=== PATIENT | female | born 1960 | race Caucasian/White ===

== ENCOUNTER 2021-11-19 13:46 | Inpatient (IN) | payer OTHER, SELFPAY ==
[2021-11-19] VITALS (8 sets, daily range): BP systolic 116–141; BP diastolic 69–116; PULSE 59–91; RESP 16–18; TEMP 36.2–36.9; O2SAT 96–99; BMI 28.2; BMI 27.2
--- NOTE | 2021-11-19 13:54 | RAD_ITS ---
STUDY: X-RAY CHEST REASON FOR EXAM: Female, 60 years old. Chest pain TECHNIQUE: Single AP portable view of the chest. COMPARISON: None. FINDINGS: The lungs are clear and expanded. There is no demonstrated pleural abnormality. Normal size heart. Normal mediastinum and jorge luis. Normal visualized pulmonary arteries. There is atherosclerotic tortuosity of the aortic arch and descending thoracic aorta. Normal visualized thoracic spine. Normal visualized ribs, clavicles, and shoulders. There is no demonstrated abnormality of the visualized soft tissue structures of the upper abdomen. RAD/Chest 1 View (Portable) IMPRESSION: Normal x-ray examination of the chest. Electronically Signed: Leonel Berg MD at 15:30 EST , Service support ,
--- NOTE | 2021-11-19 13:54 | EKG12_ITS ---
Test Reason : PRE HEART CATH Blood Pressure : / mmHG Vent. Rate : 071 BPM Atrial Rate : 071 BPM P-R Int : 178 ms QRS Dur : 090 ms QT Int : 438 ms P-R-T Axes : 075 -23 027 degrees QTc Int : 475 ms Normal sinus rhythm Abnormal ECG Confirmed by ANU EPPERSON, ASHLEY ([id number]), newspaper editor DANUTA ALDANA ([id number]) on 11/21/2021 10:03:46 AM Referred By: WHITNEY Confirmed By:ASHLEY BRENNAN MD
[2021-11-19 14:03] LABS: Absolute Lymphocyte Count 2.47 X10^3/uL (0.83-4.51); Absolute Neutrophil Count 6.6 X10^3/uL (2.0-7.7); Basophil# 0.05 X10^3/uL; Basophil% 0.5 % (0-1); Eosinophil# 0.07 X10^3/uL; Eosinophils% 0.7 % (0-5); Hematocrit 44.8 % (37-47); Hemoglobin 14.2 g/dL (12.0-15.0); Lymphocyte # 2.47 X10^3/ul (0.83-4.51); Lymphocyte % 24.7 % (19-41); Mean Corp Hgb Conc 31.7 g/dL (32-36); Mean Corpuscular Hgb 28.3 pg (27.0-32.0); Mean Corpuscular Volume 89.4 fL (81-99); Mean Platelet Vol. 8.5 fl (6.2-12.0); Monocyte# 0.79 X10^3/uL; Monocyte% 7.9 % (0-10); NRBC Flagged by Analyzer 0 % (0-5); Neutrophil # 6.62 X10^3/uL (2.7-7.7); Platelet Count 307 K/mm3 (150-450); RBC Distribution Width CV 13.3 % (11.6-14.6); RBC Distribution Width SD 43.8 fl (35.1-43.9); Red Blood Count 5.01 M/mm3 (4.2-5.4)
--- NOTE | 2021-11-19 14:16 | NURSING ---
NO OLD EKGS
[2021-11-19 14:27] LABS: Anion Gap 9 (5-15); BUN 14 mg/dL (7-18); BUN/Creat Ratio 15.7 RATIO (10-20); Calcium,Total 9.9 mg/dL (8.5-10.1); Chloride 105 mmol/L (98-107); Creatinine, Serum 0.89 mg/dL (0.55-1.02); EST Glomerular Filtration Rate 68 mL/min (>60); Est Glom Filt Rate - Afr Amer 83 mL/min (>60); Estimated Creatinine Clearance 62.14 ml/min; Glucose 90 mg/dL (74-106); Potassium 3.5 mmol/L (3.5-5.1); Sodium Level 140 mmol/L (136-145); Troponin-I HS 5912 pg/mL (3.0-54.0)
--- NOTE | 2021-11-19 14:56 | EDS_ITS ---
HPI History of Present Illness Chief Complaint: Chest Pain Informant: patient Onset/Context/Timing Onset: Days Activity at onset: sudden Timing: Intermittent Quality: Positive for Heaviness Location: Substernal Current Severity: Gone Maximum Severity: Severe Worsened By: Nothing Relieved By: Nothing Associated Symptoms: Positive for Nausea, Diaphoresis and Dyspnea; Negative for Cough, Fever, Lightheadedness, Acid Reflux and Palpitations Narrative Narrative: 60-year-old female no known past medical history but also does not have a primary care physician. States on Wednesday night at 6:00 she had midsternal chest pain at rest. Radiates to her jaw and neck. There is moderate pain pain resolved she went to bed she woke up and felt good on Wednesday. Wednesday she had similar pain that also radiated to her left arm between 7 and 8 PM. She was at rest again at that time. But she sat up the rest of the night not feeling well. Again had similar episodes last night at 10 PM was acting in a calm into the ER but when her symptoms resolved she decided to go back home. Currently she is symptom-free. She has no known history of cardiac disease there is a significant family history of cardiac disease in both her mother, father and brother. She is never had a DVT or PE and no risk factors. Prior Similar Symptoms: No Recent Illness/Hospitalization: No CVD Risk Factors: Positive for Family History 1' </=55; Negative for Hypertension, Diabetes and Hypercholesterolemia PE Risk Factors: Negative for Recent Travel/Surgery, Recent Immobilization, Prior DVT or PE, Cancer and OCP + Smoking + >/=35 TAD Risk Factors: Negative for Marfan's Syndrome, Hypertension and Family History PFSH PFSH Medical History no medical history no medical history Allergy/AdvReac Type Severity Reaction Status Date / Time No Known Allergies Allergy Verified 11/19/21 14:01 ROS ROS ED ROS Narrative Chest pain. Review of Systems ROS Unobtainable: Denies due to encephalopathy Constitutional Constitutional ED: Denies fever(s) or subjective Eyes Eyes: Denies none or change in vision ENT ENT ED: Denies ear pain Cardiovascular Cardiovascular: Reports as per HPI and chest pain; Denies palpitations or racing heartbeat Respiratory/Chest Respiratory/Chest: Reports dyspnea; Denies cough or sputum Gastrointestinal Gastrointestinal: Reports nausea; Denies abdominal pain, diarrhea or vomiting Genitourinary Genitourinary ED: Denies dysuria or hematuria Musculoskeletal Musculoskeletal: Denies myalgias Integumentary Denies rash Neurologic Neurologic: Denies headache(s) Psychiatric Psychiatric: Denies depression Endocrine Endocrinology: Denies polyuria Hematologic/Lymphatic Hematologic/Lymphatic: Denies easy bruising Allergic/Immunologic Allergic/Immunologic ED: Denies urticaria EXAM Physical Exam Narrative Exam Narrative: 60-year-old female no acute distress. Vital signs stable afebrile. Pulse ox 9 9% on room air no hypoxia. Initial blood pressure 136/81. HEENT exam unremarkable. Neck nontender no JVD. Lungs clear to auscultation bilaterally. Heart regular rhythm rate about 65 no murmur. Chest were nontender. Abdomen soft nontender. Moving all 4 extremities. Neurovascularly intact. Calves are nontender without edema or cords. Neurologically she is awake and alert with no focal motor deficits. Const Vital Signs: 11/19/21 13:59 Temperature 98 F Temperature Source Temporal Pulse Rate 68 Respiratory Rate 16 Blood Pressure 136/81 H Blood Pressure Mean 99 Pulse Ox 99 Oxygen Delivery Method Room Air Positive well nourished and well developed; Negative for obese, cachectic, contractures or unkempt General Appearance ED: well developed and NAD; Negative for unkempt, cachectic, contractures or pallor Nutritional Appearance: Negative for cachectic or obese HEENT Reports moist mucous membranes normocephalic Eyes PERRL and EOMs intact bilaterally Neck no lymphadenopathy, supple and no JVD General: Negative for tenderness Chest Wall inspection of chest normal and palpation of chest normal Chest: Negative for tenderness Resp normal respiratory effort and clear to auscultation bilaterally Effort and Inspection: respiratory distress Auscultation: Negative for rales, rhonchi, wheezes or diminished lung sounds Cardio regular rate, regular rhythm, S1 normal heart sound, S2 normal heart sound and no murmurs Rate: Negative for bradycardia or tachycardic Rhythm: Negative for abnormal rhythm GI normal to inspection, nondistended, normoactive bowel sounds, soft to palpation, non-tender, non-distended and no masses; Negative for hepatosplenomegaly Auscultation: Negative for hyperactive bowel sounds Back/Spine no CVA tenderness; Negative for no thoracic nor lumbar tenderness General Back: Negative for CVA tenderness Cervical Spine: Negative for cervical spine tenderness Extremity normal to inspection General Extremety ED: Negative for edema or tenderness General Extremity: Negative for edema Neuro oriented x3 Sensorium / Orientation: awake, alert, oriented to person, oriented to place and oriented to time Motor Exam: strength 5/5 throughout Psych mental status grossly normal Appearance: Negative for unkempt Attitude: No agitated Mood & Affect: Negative for depressed, anxious or tearful Skin no rashes or lesions noted and no wounds General Skin Exam: Negative for jaundice or pallor Rashes: No rashes noted Heart Score History: Highly Suspicious ECG: Normal Age: >45 - <65 years Risk Factors: 1 or 2 Risk Factors Troponin: >/=3 x Normal Limit Score: 6 MDM MDM MDM Narrative Medical decision making narrative: 60-year-old female with a history of very concerning chest pain over the last several days. She has a significantly elevated troponin. Currently she is symptom-free with a normal exam. I have already spoken to cardiology zoning technician. Due to her being symptom-free organ admit her to the hospitalist to the PCU. She will be heparinized. And she will be taken to the cardiac catheterization lab tomorrow. Obviously she develops symptoms that may change the treatment course. She is very stable at this time. Repeat exam patient is doing well at 3:22 PM. Hospitalist is going admit her to the PCU. She will be getting heparin bolus and drip. Lab Data Attestation: I reviewed the patient's lab results. Lab results narrative: CBC White count of 10. Hemoglobin 14. Electrolytes unremarkable gap at 9 normal creatinine 0.89. Troponins elevated at 5912 consistent with a non-ST elevation [place] in the last several days. Labs: Laboratory Results - last 24 hr 11/19/21 11/19/21 13:50 13:50 WBC 10.0 RBC 5.01 Hgb 14.2 Hct 44.8 MCV 89.4 MCH 28.3 MCHC 31.7 L RDW Std Deviation 43.8 RDW Coeff of Nikolas 13.3 Plt Count 307 MPV 8.5 Immature Gran % (Auto) 0.200 Neut % (Auto) 66.0 Lymph % (Auto) 24.7 [place] % (Auto) 7.9 Eos % (Auto) 0.7 Baso % (Auto) 0.5 Absolute Neuts (auto) 6.6 Absolute Lymphs (auto) 2.47 Nucleated RBC % 0 Sodium 140 Potassium 3.5 Chloride 105 Carbon Dioxide 26.0 Anion Gap 9 BUN 14 Creatinine 0.89 Estim Creat Clear Calc 62.14 Est GFR (MDRD) Af Amer 83 Est GFR (MDRD) Non-Af 68 BUN/Creatinine Ratio 15.7 Glucose 90 Calcium 9.9 Troponin I High Sens 5912 H* Radiography Chest X-Ray - ED: 1 View, Read by ED Physician, Heart, Lungs, Mediastinum, Bony Structures, No Acute Disease and Chronic Changes Diagnostic Testing: Chest x-ray, portable, single view interpreted by myself shows no acute abnormality. Normal cardiac silhouette and mediastinum. Rhythm Strip Rhythm Strip: Sinus Rhythm Rate: 64 Ectopy: None EKG Initial EKG: Attestation: I personally reviewed and interpreted this EKG as follows: Interpretation: Sinus Rhythm Comments: Normal sinus rhythm rate of 64 no acute signs of [place] or ischemia. Prior EKG tracings: not available for review Discharge Plan Dx/Rx/DC Orders Clinical Impression: Chest pain, Non-ST elevation (NSTEMI) myocardial infarction Disposition Disposition: Acute Care Hospital [facility]
[2021-11-19] MEDS: Heparin Injection (Vial) 5,000 UNIT/ML VIAL 5000 UNIT IV (15:41)
--- NOTE | 2021-11-19 16:11 | HP.PCM.HOS_ITS ---
HPI - General General Date of Admission: 11/19/21 HPI Narrative FLORINDA BAILEY, is a 60 F who presents with chest pain. The past 3 nights, patient has experienced midsternal chest pain rating into bilateral jaws. Symptoms last about an hour and then go away spontaneously. This occurs while she is just sitting and watching TV. Is never had this problem before. She presented this morning for evaluation. Her work-up was unremarkable regards her EKG but her troponin was elevated at 5912. Dr. Johnson was contacted and is plan to do a cardiac catheterization on . [facility] Medical History no medical history no medical history Allergy/AdvReac Type Severity Reaction Status Date / Time No Known Allergies Allergy Verified 11/19/21 14:01 Family History (Updated 11/19/21 @ 16:[address] Lewis Osman DO) Mother Heart disease Brother Heart disease Sister Heart disease Social History (Updated 11/19/21 @ 16:[address] Lewis Osman DO) Smoking Status: Never smoker alcohol intake: never substance use type: does not use ROS ROS Narrative Patient did have some diaphoresis with the spells. Denies any shortness of breath. All review of systems were negative except as mentioned above in the history of present illness and the other review of systems. Vital Signs Vital Signs Vital Signs: 11/19/21 13:59 11/19/21 15:38 Temperature 36.6 C 36.2 C L Temperature Source Temporal Temporal Pulse Rate 68 65 Respiratory Rate 16 16 Blood Pressure 136/81 H 140/116 H Blood Pressure Mean 99 124 Pulse Ox 99 98 Oxygen Delivery Method Room Air Room Air Weight Weight: 79.379 kg Body Mass Index (BMI) 28.2 Physical Exam Const alert and no apparent distress General Appearance: cooperative HEENT normocephalic and head/scalp atraumatic Neck no lymphadenopathy Resp normal respiratory effort, no retractions, no use of accessory muscles and clear to auscultation bilaterally Cardio regular rate, regular rhythm, S1 normal heart sound and S2 normal heart sound GI normal to inspection, nondistended, normoactive bowel sounds, soft to palpation, non-tender and non-distended Extremity normal to inspection and full ROM Neuro Sensorium / Orientation: awake and alert Results Lab / Micro Data Attestation: I reviewed the patient's lab results. Result Diagrams: 11/19/21 13:50 11/19/21 13:50 Labs: Laboratory Results - last 24 hr 11/19/21 13:50: WBC 10.0, RBC 5.01, Hgb 14.2, Hct 44.8, MCV 89.4, MCH 28.3, MCHC 31.7 L, RDW Std Deviation 43.8, RDW Coeff of Nikolas 13.3, Plt Count 307, MPV 8.5, Immature Gran % (Auto) 0.200, Neut % (Auto) 66.0, Lymph % (Auto) 24.7, [place] % (Auto) 7.9, Eos % (Auto) 0.7, Baso % (Auto) 0.5, Absolute Neuts (auto) 6.6, Absolute Lymphs (auto) 2.47, Nucleated RBC % 0 11/19/21 13:50: Sodium 140, Potassium 3.5, Chloride 105, Carbon Dioxide 26.0, Anion Gap 9, BUN 14, Creatinine 0.89, Estim Creat Clear Calc 62.14, Est GFR (MDRD) Af Amer 83, Est GFR (MDRD) Non-Af 68, BUN/Creatinine Ratio 15.7, Glucose 90, Calcium 9.9, Troponin I High Sens 5912 H* Rhythm Strip Rhythm Strip: Sinus Rhythm Rate: 64 Ectopy: None EKG Initial EKG: Attestation: I personally reviewed and interpreted this EKG as follows: Prior EKG tracings: available for review EKG Rhythm Intrepretation: Sinus Rhythm Radiology Impression Chest X-Ray 11/19/21 13:54 IMPRESSION: Normal x-ray examination of the chest. Electronically Signed: Leonel Berg MD at 15:30 EST , Service support , Assessment & Plan Assessment/Plan (1) Non-ST elevation (NSTEMI) myocardial infarction: (2) COVID-19 vaccine dose declined: PLAN: 1. Non-STEMI Patient anticoagulated with heparin and will continue Give patient aspirin Check lipid panel Plan for cardiac catheterization on the [address] Johnson 2. VTE prophylaxis not indicated as patient is anticoagulated 3. Covid vaccine hesitancy Patient says she contracted Covid about a year ago. Said that she does not want it in her body. I strongly advised her that she do get vaccinated. She apparently is unaware of the influx of COVID-19 patients and hospitals across the world. Charges/Coding Visit Charges Inpatient E&M: 17528 Init Hosp L2
--- NOTE | 2021-11-19 16:26 | EKG12_ITS ---
Test Reason : AM Blood Pressure : / mmHG Vent. Rate : 068 BPM Atrial Rate : 068 BPM P-R Int : 172 ms QRS Dur : 086 ms QT Int : 446 ms P-R-T Axes : 077 042 -85 degrees QTc Int : 474 ms Normal sinus rhythm T wave abnormality, consider inferolateral ischemia Prolonged QT Abnormal ECG When compared with ECG of 19-NOV-2021 17:21, T wave inversion now evident in Inferior leads Confirmed by RYAN EPPERSON, FLACO ([id number]), tape editor COOKIE BURDICK ([id number]) on 11/27/2021 2:02:31 PM Referred By: WHITNEY Confirmed By:TACOS DAVIS MD
[2021-11-19 17:01] LABS: Prothrombin Time (Protime)PT. 12.6 SECONDS (11.7-14.9)
[2021-11-19 17:02] LABS: Partial Thromboplast Time 36.2 Seconds (24.1-36.2)
--- NOTE | 2021-11-19 17:03 | PCS.PANDOC ---
PANDEMIC DOCUMENTATION INITIATED: Date: 06/30/2021 Time: 190
--- NOTE | 2021-11-19 17:06 | CON.PCM.CA_ITS ---
Assessment & Plan Assessment/Plan (1) Non-ST elevation (NSTEMI) myocardial infarction: PLAN: She presents with chest discomfort which is fairly classic for angina with angina at rest and also with a non-ST elevation myocardial infarction. My recommendation will be as follows. * Aspirin 325 mg * Metoprolol 25 mg twice a day * Atorvastatin 80 mg a day * Lovenox 1 mg/kg * Bedrest * Cardiac catheterization in a.m. There is benefits alternatives have been explained to her she understands and agrees to proceed. Depending on the findings further recommendations will be made. * * Thank you for allowing me to participate in the care of your patient. Please don't hesitate to call if any issues arise. HPI Consult Data Date of Consult: 11/19/21 HPI Narrative HPI Narrative: FLORINDA BAILEY, is a 60 F who presents to the emergency him this afternoon after calling our office to make an appointment. She has apparently been having chest discomfort over the last 3 days usually at rest described as a heaviness across her chest and radiating to both sides of her jaw. She says t hat these occurred on successive nights. She did not take any medication for this. She denied any dizziness or diaphoresis near syncope or syncope she called our office today and was directed to go directly to the emergency room. In the emergency room she was noted to have an elevated troponin count. Cardiology was consulted for further evaluation and management. [facility] Medical History no medical history Allergy/AdvReac Type Severity Reaction Status Date / Time No Known Allergies Allergy Verified 11/19/21 14:01 Family History Mother Heart disease Brother Heart disease Sister Heart disease Social History Smoking Status: Never smoker alcohol intake: never substance use type: does not use ROS Constitutional Constitutional: Denies fever(s) or weight loss Eyes Eyes: Reports systems reviewed and no addt'l complaints, except as documented ENT HEENT: Reports systems reviewed and no addt'l complaints, except as documented Cardiovascular Cardiovascular: Denies chest pain at rest, chest pain with activity, dyspnea at rest, dyspnea on exertion, edema, palpitations or paroxysmal nocturnal dyspnea Respiratory/Chest Respiratory/Chest: Denies dyspnea on exertion, productive cough, shortness of breath at rest or shortness of breath with exertion Gastrointestinal Gastrointestinal: Denies change in bowel habits, nausea, vomiting or weight changes Genitourinary Genitourinary: Denies difficulty urinating Musculoskeletal Musculoskeletal: Denies joint stiffness or muscle weakness Integumentary Integumentary: Denies lesions Neurologic Neurologic: Denies dizziness or syncope Psychiatric Psychiatric: Denies anxiety Endocrine Endocrinology: Denies excessive sweating or fatigue Hematologic/Lymphatic Hematologic/Lymphatic: Denies anemia Allergic/Immunologic Allergic/Immunologic: Denies seasonal rhinorrhea Physical Exam Const alert, oriented x3 and no apparent distress General Appearance: cooperative HEENT hearing grossly normal bilaterally Head and Scalp: atraumatic Eyes EOMs intact bilaterally Neck General: normal visual inspection Chest inspection of chest normal and palpation of chest normal Resp normal respiratory effort Auscultation: clear to auscultation bilaterally Cardio regular rate, regular rhythm, S1 normal heart sound and S2 normal heart sound Jugular Venous Distention: JVD GI normal to inspection, nondistended, normoactive bowel sounds Extremity normal capillary refill and no pedal edema Peripheral Pulses: Yes pulses 2+ throughout and femoral pulses present Skin no rashes or lesions noted Neuro oriented x3 and CN's II-XII intact bilaterally Psych Appearance: grossly normal and appropriate Risk Stratification Risk Stratification Applicable: Yes Age >/= 65: No >/= 3 CAD Risk Factors (HTN, HLD, DM, family hx of CAD, or current smoker): No Aspirin Use in the Past 7 Days: No Severe Angina (>/= episodes in 24 hours): Yes EKG ST Changes >/= 0.5mm: No Positive Cardiac Marker: Yes WANDA Risk Stratification Score: 2 WANDA % Risk: 8% Risk Objective Data Vital Signs: Vital Signs Temp Pulse Resp BP Pulse Ox 97.2 F L 65 16 140/116 H 98 11/19/21 15:38 11/19/21 15:38 11/19/21 15:38 11/19/21 15:38 11/19/21 15:38 Oxygen Delivery Method Room Air Weight: 171 lb 4.787 oz Body Mass Index (BMI) 27.2 Intake & Output: Intake and Output for Last 24 Hours 11/17/21 11/18/21 11/19/21 23:59 23:59 23:59 Intake Total 8.43 / 8.43 Balance 8.43 / 8.43 Lab / Micro Data Result Diagrams: 11/19/21 13:50 11/19/21 13:50 Labs: Laboratory Results - last 24 hr 11/19/21 13:50: WBC 10.0, RBC 5.01, Hgb 14.2, Hct 44.8, MCV 89.4, MCH 28.3, MCHC 31.7 L, RDW Std Deviation 43.8, RDW Coeff of Nikolas 13.3, Plt Count 307, MPV 8.5, Immature Gran % (Auto) 0.200, Neut % (Auto) 66.0, Lymph % (Auto) 24.7, [place] % (Auto) 7.9, Eos % (Auto) 0.7, Baso % (Auto) 0.5, Absolute Neuts (auto) 6.6, Absolute Lymphs (auto) 2.47, Nucleated RBC % 0 11/19/21 13:50: Sodium 140, Potassium 3.5, Chloride 105, Carbon Dioxide 26.0, Anion Gap 9, BUN 14, Creatinine 0.89, Estim Creat Clear Calc 62.14, Est GFR (MDRD) Af Amer 83, Est GFR (MDRD) Non-Af 68, BUN/Creatinine Ratio 15.7, Glucose 90, Calcium 9.9, Troponin I High Sens 5912 H* 11/19/21 13:50: PT 12.6, INR 1.0, APTT 36.2 Rhythm Strip Rhythm Strip: Sinus Rhythm Rate: 64 Ectopy: None Cardiology Labs/Tests 11/19/21 13:50: WBC 10.0, RBC 5.01, Hgb 14.2, Hct 44.8, MCV 89.4, MCH 28.3, MCHC 31.7 L, Plt Count 307, MPV 8.5, Immature Gran % (Auto) 0.200, Neut % (Auto) 66.0, Lymph % (Auto) 24.7, [place] % (Auto) 7.9, Eos % (Auto) 0.7, Baso % (Auto) 0.5, Absolute Neuts (auto) 6.6, Nucleated RBC % 0 11/19/21 13:50: Sodium 140, Potassium 3.5, Chloride 105, Carbon Dioxide 26.0, Anion Gap 9, BUN 14, Creatinine 0.89, Est GFR (MDRD) Af Amer 83, Est GFR (MDRD) Non-Af 68, BUN/Creatinine Ratio 15.7, Glucose 90, Calcium 9.9 11/19/21 13:50: PT 12.6, INR 1.0, APTT 36.2 Rhythm: EKG: Normal sinus rhythm with no acute changes ECHO: Stress Test: Cardiac Cath: PCI: CT Surgery: Holter monitor: EPS: PPM: CXR: Chest CT Scan: Radiography Diagnostic Testing: Radiology Impression Chest X-Ray 11/19/21 13:54 IMPRESSION: Normal x-ray examination of the chest. Electronically Signed: Leonel Berg MD at 15:30 EST , Service support ,
[2021-11-19] MEDS: 0.9% Saline Lock 10 ML Syringe IV (17:26)
[2021-11-19] MEDS: Aspirin 81 MG TAB.CHEW 324 MG PO (17:28)
[2021-11-19 19:25] LABS: Troponin-I HS 4348 pg/mL (3.0-54.0)
[2021-11-19 21:20] LABS: Troponin-I HS 4399 pg/mL (3.0-54.0)
[2021-11-19] MEDS: Enoxaparin 80 MG/0.8 ML Syringe SC (21:27)
[2021-11-19] MEDS: Metoprolol Tartrate 25 MG Tablet PO (21:27)
[2021-11-19] MEDS: Atorvastatin Calcium 80 MG Tablet PO (21:27)
[2021-11-20] VITALS (8 sets, daily range): BP systolic 103–108; BP diastolic 59–87; PULSE 59–78; RESP 16–18; TEMP 36.2–37; O2SAT 96–98
--- NOTE | 2021-11-20 05:55 | EKG12_ITS ---
Test Reason : CP/JAW PAIN Blood Pressure : / mmHG Vent. Rate : 064 BPM Atrial Rate : 064 BPM P-R Int : 168 ms QRS Dur : 082 ms QT Int : 412 ms P-R-T Axes : 074 001 017 degrees QTc Int : 425 ms Normal sinus rhythm Normal ECG Confirmed by RYAN EPPERSON, FLACO ([id number]), supervising film or videotape editor COOKIE BURDICK ([id number]) on 11/28/2021 8:22:20 AM Referred By: MARCO ANTONIO/JORDYN Confirmed By:TACOS DAVIS MD
[2021-11-20] MEDS: 0.9% Saline Lock 10 ML Syringe IV (06:07)
[2021-11-20] MEDS: Aspirin E.C. 81 MG Tablet PO (06:07)
[2021-11-20] MEDS: Metoprolol Tartrate 25 MG Tablet PO (06:07)
[2021-11-20 07:55] LABS: Thyroid Stim Hormone (TSH) 2.47 uIU/mL (0.358-3.74)
--- NOTE | 2021-11-20 08:44 | CL.D_ITS ---
Patient Name: FLORINDA BAILEY Study Date: 11/20/2021 Performing: Callum Maldonado MD Ht: 66.53 inches 169 cm : 1960 Wt: 171.96 lbs 78 kg Age: 60 Gender: female BSA: 1.89 PROCEDURE(S) PERFORMED [id number])LHC/COR/LV CLINICAL PROFILE AND INDICATIONS Indications: ACS <= 24 hrs Heart Failure: None Stress/Imaging Stress/Image Study Performed: No CONCLUSIONS Mild eccentric [id number]. Mild LV dysfunction. RECOMMENDATIONS Medical therapy DESCRIPTION OF PROCEDURE The patient arrived to the procedure lab. The risks and benefits of the procedure as well as a full d escription of our services here and current unavailability of surgical backup were fully explained to the patient and/or their significant other prior to the catheterization. The Timeout was completed, verifying the correct patient and procedure. The patient's procedural site was prepped and draped in the usual fashion. Local anesthetic was given subcutaneously to right radial region with Lidocaine 2% . Using a modified Seldinger technique, arterial access was obtained via the right radial artery, a 6 Fr sheath was inserted. Left Coronary Artery selective angiography was performed in multiple views u sing a 5 Fr. 4.0 Lander catheter. Right Coronary Artery selective angiography was then performed in mu ltiple views using a 5 Fr. 4.0 Lander catheter. Left Ventriculography was performed in HOLLOWAY projection using a 5 Fr. Pigtail catheter. LV to AO pullback pressures were then recorded.The arterial sheath was pulled and a TR Band was applied for hemostasis CORONARY ANGIOGRAPHY DOMINANCE: Right Dominant LEFT HEART ASSESSMENT Left Ventricular Ejection Fraction: by LV Gram 45 % Anterior Hypokinesis - Mild Depressed Left Ventricular systolic function LEFT MAIN: Angiographically normal LEFT ANTERIOR DESCENDING ARTERY: Angiographically normal CIRCUMFLEX ARTERY: No significant disease noted OM 1: Proximal - 50smooth RIGHT CORONARY ARTERY: Angiographically normal COMPLICATIONS No Complications PROCEDURE MEDICATIONS Versed 1 mg IV Fentanyl 50 mcg IV Versed 1 mg IV Oxygen: 2 L/min via nasal cannula Heparin given IA 11/20/2021 08:08:27 SUMMARY OF HEMODYNAMIC DATA Time AIR REST ECG 07:54:34 AO 103/65 (83) SA 08:16:42 LV 97/-7, -2 08:23:22 LV 98/-7, -2 08:23:29 LV 114/3, 8 08:24:08 LV 107/3, 7 08:24:15 LV 102/5, 10 08:24:54 LV 107/6, 9 08:25:01 LVp 109/3, 9 08:25:08 AOp 110/66 (86) 08:25:13 Signed By Callum Maldonado MD On 11/20/2021 08:43:33 Callum Maldonado MD
--- NOTE | 2021-11-20 08:46 | PN.CARD_ITS ---
Subjective Subjective Patient seen and evaluated. Objective Data Vital Signs: Vital Signs Temp Pulse Resp BP Pulse Ox 98.6 F 69 18 108/63 97 11/20/21 06:05 11/20/21 07:00 11/20/21 06:05 11/20/21 06:07 11/20/21 06:05 Oxygen Delivery Method Room Air Weight: 171 lb 4.787 oz Body Mass Index (BMI) 27.2 Intake & Output: Intake and Output for Last 24 Hours 11/18/21 11/19/21 11/20/21 23:59 23:59 23:59 Intake Total 8.43 / 8.43 Balance 8.43 / 8.43 Lab / Micro Data Result Diagrams: 11/19/21 13:50 11/19/21 13:50 Labs: Laboratory Results - last 24 hr 11/19/21 13:50: WBC 10.0, RBC 5.01, Hgb 14.2, Hct 44.8, MCV 89.4, MCH 28.3, MCHC 31.7 L, RDW Std Deviation 43.8, RDW Coeff of Nikolas 13.3, Plt Count 307, MPV 8.5, Immature Gran % (Auto) 0.200, Neut % (Auto) 66.0, Lymph % (Auto) 24.7, Barnes % (Auto) 7.9, Eos % (Auto) 0.7, Baso % (Auto) 0.5, Absolute Neuts (auto) 6.6, Absolute Lymphs (auto) 2.47, Nucleated RBC % 0 11/19/21 13:50: Sodium 140, Potassium 3.5, Chloride 105, Carbon Dioxide 26.0, Anion Gap 9, BUN 14, Creatinine 0.89, Estim Creat Clear Calc 62.14, Est GFR (MDRD) Af Amer 83, Est GFR (MDRD) Non-Af 68, BUN/Creatinine Ratio 15.7, Glucose 90, Calcium 9.9, Troponin I High Sens 5912 H* 11/19/21 13:50: PT 12.6, INR 1.0, APTT 36.2 11/19/21 17:07: Troponin I High Sens 4348 H* 11/19/21 20:17: Troponin I High Sens 4399 H* 11/20/21 06:54: TSH 2.47 Micro: Microbiology 11/19/21 17:44 Nasal Secretion SARS-CoV-2 Antigen (Rapid) - Final Rhythm Strip Rhythm Strip: Sinus Rhythm Rate: 64 Ectopy: None Cardiology Labs/Tests 11/19/21 13:50: WBC 10.0, RBC 5.01, Hgb 14.2, Hct 44.8, MCV 89.4, MCH 28.3, MCHC 31.7 L, Plt Count 307, MPV 8.5, Immature Gran % (Auto) 0.200, Neut % (Auto) 66.0, Lymph % (Auto) 24.7, Barnes % (Auto) 7.9, Eos % (Auto) 0.7, Baso % (Auto) 0.5, Absolute Neuts (auto) 6.6, Nucleated RBC % 0 11/19/21 13:50: Sodium 140, Potassium 3.5, Chloride 105, Carbon Dioxide 26.0, Anion Gap 9, BUN 14, Creatinine 0.89, Est GFR (MDRD) Af Amer 83, Est GFR (MDRD) Non-Af 68, BUN/Creatinine Ratio 15.7, Glucose 90, Calcium 9.9 11/19/21 13:50: PT 12.6, INR 1.0, APTT 36.2 Rhythm: EKG: ECHO: Stress Test: Cardiac Cath: PCI: CT Surgery: Holter monitor: EPS: PPM: CXR: Chest CT Scan: Radiography Diagnostic Testing: Radiology Impression Chest X-Ray 11/19/21 13:54 IMPRESSION: Normal x-ray examination of the chest. Electronically Signed: Leonel Berg MD at 15:30 EST , Service support , Physical Exam Const alert, oriented x3 and no apparent distress General Appearance: cooperative HEENT hearing grossly normal bilaterally Head and Scalp: atraumatic Eyes EOMs intact bilaterally Neck General: normal visual inspection Chest inspection of chest normal and palpation of chest normal Resp normal respiratory effort Auscultation: clear to auscultation bilaterally Cardio regular rate, regular rhythm, S1 normal heart sound and S2 normal heart sound Jugular Venous Distention: JVD GI normal to inspection, nondistended, normoactive bowel sounds Extremity normal capillary refill and no pedal edema Peripheral Pulses: Yes pulses 2+ throughout and femoral pulses present Skin no rashes or lesions noted Neuro oriented x3 and CN's II-XII intact bilaterally Psych Appearance: grossly normal and appropriate Assessment & Plan Assessment/Plan (1) Non-ST elevation (NSTEMI) myocardial infarction: PLAN: She presents with chest discomfort which is fairly classic for angina with angina at rest and also with a non-ST elevation myocardial infarction. She underwent cardiac catheterization which demonstrated the following: Normal left main coronary artery. Left anterior descending artery with no significant stenosis. Dominant right coronary artery with no significant stenosis. Left circumflex artery which is a large vessel with the first obtuse marginal branch demonstrating eccentric 50% stenosis. Mild left ventricular systolic dysfunction with mild anterior hypokinesis. The above appears to be more consistent with a Takotsubo pattern. My recommendation will be as follows. * Aspirin 81 mg * Metoprolol 25 mg twice a day * Atorvastatin 80 mg a day * She can probably be discharged later today. * Thank you for allowing me to participate in the care of your patient. Please don't hesitate to call if any issues arise.
--- NOTE | 2021-11-20 10:59 | NURSING ---
pt back from blood and plasma laboratory assistant all recovered per blood and plasma laboratory assistant. pt irritable and c/o lozano. in room. teaching reinforced on not using rt for today. per dr. fajardo notes pt would be able to be dc'd home today.
--- NOTE | 2021-11-20 11:42 | PCM.DC ---
Discharge Instructions Diet Discharge Diet: Low fat / Low cholesterol and 2000 mg Sodium Diet Activity Discharge Activity: Return to Normal Activity Follow Up Care Test Results: Test results from this visit will be discussed in further detail at your follow-up appointment, if applicable. Discharge Plan Admission Admit Date/Time: 11/19/21 16:07 Primary Reason for Your Visit: Acute non-STEMI Attending Provider: Rima Barakat Primary Care Provider: Care Physician,No Primary Consulting Providers: Mekhi Johnson Instructions Additional Instructions / Restrictions: Take note of your new medications. Continue to follow on a low-salt low-fat diet. Follow-up with cardiology in the outpatient Discharge Orders/Prescriptions Referrals / Follow Up: Callum Maldonado MD [STAFF PHYSICIAN] - Within 2 Weeks Raul Jewell MD [STAFF PHYSICIAN] - Within 2 Weeks Care Physician,No Primary [Primary Care Provider] - Disposition Disposition (needs filled in before D/C Order can be placed): Home, Self Care
--- NOTE | 2021-11-20 12:45 | CASEMGMT ---
MEREDITH SHELDON assessment: Face to Face with patient for initial transition planning/care coordination assessment. MEREDITH SHELDON introduced self and role at [facility], pt voices understanding and consents to assessment. Pt is sitting up in bed in no distress on room air. Pt is A/Ox4 and answers all questions appropriately. Care providers, pharmacy, and demographics verified. Presentation: Pt c/o intermittent CP for 3 days Admitting dx: NSTEMI PCP: Lana-is working on getting into her Specialists: Erica, cardio [facility]acy[facility] Insurance: Self pay Prescription Benefit: Self pay Living Will/HPOA: Pt does not have LW/HPOA and declines AD info. LNOK: Antoine Sandoval, Living Arrangements: Pt lives with sig other in 1 story home with couple steps in and states no concerns at home. Pt is independent with ADL's. Transportation: Pt drives self and states no transportation concerns. DME/HHC: Pt has no current DME or need for any further DME. Pt states no hx of HHC or SNF. Pt states no concerns with going home at time of discharge. Pt is self-employed. Pt states does not smoke cigarettes or drink ETOH. Pt voices no further concerns/needs. CM to follow for any further discharge planning/needs. Advised pt to ask for CM if any further questions/concerns/needs arise, voice understanding. Pt Goal: Home Plan[place] MEREDITH SHELDON
--- NOTE | 2021-11-20 13:20 | PCM.DC.SUM ---
Providers Date of Admission: 11/19/21 Date of Discharge: 11/20/21 Primary Care Physician: Dr. Phillip Schwartz MD Consultations 11/19/21 16:26 Consult: Cardiology Routine Consulting Provider: Mekhi Johnson Reason for Consult: NSTEMI EMERGENT Consult: No MD Notified: Yes Date Notified: 11/19/21 Time Notified: 16:11 Method of Notification: Verbal Reason For Visit: NSTEMI Diagnosis Discharge Diagnosis (1) Non-ST elevation (NSTEMI) myocardial infarction: Status: Acute Code(s): I21.4 - Non-ST elevation (NSTEMI) myocardial infarction Medications at Discharge Home Medications aspirin 81 mg PO BREAKFAST 30 Days #30 tab 11/20/21 atorvastatin 80 mg PO QHS 30 Days #30 tab 11/20/21 metoprolol tartrate 25 mg PO BID 30 Days #60 tab 11/20/21 Hospital Course Operations None Procedures Cardiac catheterization (11/20/20) Summary of Care Provided Minutes Spent on Discharge: 40 Hospital Course: 60-year-old female with no significant past medical history who comes in with a 3-day history of midsternal chest pain radiating into her jaws. Symptoms typically last for 1 hour and go away. Patient's work-up in the ED was significant for elevated troponin of 5912. Patient was admitted to the PCU and plan for cardiac catheterization. Findings were: Normal left main coronary artery. Left anterior descending artery with no significant stenosis. Dominant right coronary artery with no significant stenosis. Left circumflex artery which is a large vessel with the first obtuse marginal branch demonstrating eccentric 50% stenosis. Mild left ventricular systolic dysfunction with mild anterior hypokinesis. Her clinical picture was felt to be consistent with Takotsubo cardiomyopathy. She was started on aspirin 81 mg, metoprolol 25 mg twice daily, atorvastatin 80. Patient was seen and examined the day of discharge. Denied any new complaints. She will follow-up with cardiology in the outpatient. Physical Exam Narrative Physical exam: General: Alert, Oriented x3, Cooperative, No apparent distress, Well developed HEENT: Atraumatic Oral: Moist Mucosa Neck: Supple Lungs: Clear to auscultation Cardiovascular: HS I+II, regular, no murmurs Abdomen: Bowel Sounds Present, Soft, Non Tender Extremities: No edema Weight / BMI Weight Weight: 77.7 kg Body Mass Index (BMI) 27.2 ABG / Lab / Microbiology Data Result Diagrams: 11/19/21 13:50 11/19/21 13:50 Laboratory: Laboratory Results - last 24 hr 11/19/21 13:50: WBC 10.0, RBC 5.01, Hgb 14.2, Hct 44.8, MCV 89.4, MCH 28.3, MCHC 31.7 L, RDW Std Deviation 43.8, RDW Coeff of Nikolas 13.3, Plt Count 307, MPV 8.5, Immature Gran % (Auto) 0.200, Neut % (Auto) 66.0, Lymph % (Auto) 24.7, Schleicher % (Auto) 7.9, Eos % (Auto) 0.7, Baso % (Auto) 0.5, Absolute Neuts (auto) 6.6, Absolute Lymphs (auto) 2.47, Nucleated RBC % 0 11/19/21 13:50: Sodium 140, Potassium 3.5, Chloride 105, Carbon Dioxide 26.0, Anion Gap 9, BUN 14, Creatinine 0.89, Estim Creat Clear Calc 62.14, Est GFR (MDRD) Af Amer 83, Est GFR (MDRD) Non-Af 68, BUN/Creatinine Ratio 15.7, Glucose 90, Calcium 9.9, Troponin I High Sens 5912 H* 11/19/21 13:50: PT 12.6, INR 1.0, APTT 36.2 11/19/21 17:07: Troponin I High Sens 4348 H* 11/19/21 20:17: Troponin I High Sens 4399 H* 11/20/21 06:54: TSH 2.47 Microbiology: Microbiology 11/19/21 17:44 Nasal Secretion SARS-CoV-2 Antigen (Rapid) - Final Radiography Diagnostic Testing: Radiology Impression Chest X-Ray 11/19/21 13:54 IMPRESSION: Normal x-ray examination of the chest. Electronically Signed: Leonel Berg MD at 15:30 EST , Service support , D/C Instructions Discharge Diet: Low fat / Low cholesterol and 2000 mg Sodium Diet Meaningful Use Info Meaningful Use Diagnoses (Choose all that apply): None applicable AMI/Post PCI/Angioplasty Aspirin given w/in 24hrs of arrival?: Yes ASA at discharge?: Yes Antiplatelet Therapy at Discharge:: No Reason Antiplatelet Therapy not ordered:: not indicated Statins at discharge?: Yes Lebron/ARB at discharge?: Yes Beta Curry at discharge?: Yes Done w/ Acute AL measure.: Yes Discharge Plan Admission Admit Date/Time: 11/19/21 16:07 Primary Reason for Your Visit: Acute non-STEMI Attending Provider: Rima Barakat Primary Care Provider: Phillip Schwartz Consulting Providers: Mekhi Johnson Instructions Additional Instructions / Restrictions: Take note of your new medications. Continue to follow on a low-salt low-fat diet. Follow-up with cardiology in the outpatient Discharge Orders/Prescriptions Prescriptions: New atorvastatin 80 mg Tablet 80 mg PO QHS 30 Days Qty: 30 RF: 1 aspirin 81 mg Tablet,Delayed Release (Dr/Ec) 81 mg PO BREAKFAST 30 Days Qty: 30 RF: 1 metoprolol tartrate 25 mg Tablet 25 mg PO BID 30 Days Qty: 60 RF: 1 Referrals / Follow Up: Callum Maldonado MD [STAFF PHYSICIAN] - Within 2 Weeks Raul Jewell MD [STAFF PHYSICIAN] - Within 2 Weeks Care Physician,No Primary [NON-STAFF] - Disposition Disposition (needs filled in before D/C Order can be placed): Home, Self Care
--- NOTE | 2021-11-20 14:31 | CASEMGMT ---
ANABELA spoke with patient as she is self pay. She would not qualify for most of ANABELA's resources. ANABELA did give patient information on [facility]cription [facility]. Cyndi Bradshaw [employer]
== END 2021-11-20 14:50 | disposition home or self-care (01) | DRG 281 ==
LOC: ED 15:47 → PCU 16:36
PROVIDERS: Emergency Provider Emergency Medicine; PCP Internal Medicine; Visit Provider Internal Medicine
DX: I21.4 Non-ST elevation (NSTEMI) myocardial infarction (principal); I51.81 Takotsubo syndrome; I20.9 Angina pectoris, unspecified; E78.00 Pure hypercholesterolemia, unspecified; Z79.01 Long term (current) use of anticoagulants; Z82.49 Family history of ischemic heart disease and other diseases of the circulatory system; Z28.21 Immunization not carried out because of patient refusal; Z79.82 Long term (current) use of aspirin
CPT/HCPCS: 36415; 71045; 80048; 84443; 84484; 85025; 85610; 85730; 87426; 93005; 93458; 99152; 99153; 99285; 99406; J7040; Q9967; A4216; C1769; C1894; J2405

== ENCOUNTER 2022-02-18 16:30 | Outpatient (CLI) | payer OTHER, SELFPAY ==
[2022-02-26 11:18] LABS: HPV APTIMA, High Risk Negative (Negative)
== END 2022-02-18 23:59 | disposition home or self-care (01) ==
LOC: LABSPEC 16:33
PROVIDERS: PCP Internal Medicine; Visit Provider Obstetrics & Gynecology
DX: Z12.4 Encounter for screening for malignant neoplasm of cervix (principal)
CPT/HCPCS: 87624; 88175; G0145

== ENCOUNTER → 2022-04-03 | Outpatient (CLI) | payer OTHER, SELFPAY ==
--- NOTE | 2022-04-03 11:14 | US_ITS ---
STUDY: ULTRASOUND OF THE FEMALE PELVIS - COMPLETE REASON FOR EXAM: Female, 61 years old. Prolapse LMP: Patient is postmenopausal. TECHNIQUE: Transabdominal and Transvaginal TECHNICAL QUALITY: Adequate. COMPARISON: None. FINDINGS: The uterus is anteverted and is in a midline position. The uterus measures 6.7 cm x 4.4 cm x 2.7 cm. There is a Nabothian cyst of the cervix. The endometrium measures 2 mm in thickness, and is hyperechoic. There is no demonstrated endometrial mass. There is no demonstrated myometrial mass. I.U.D. - The patient does not have an I.U.D. The right ovary is non-visualized due to overlying bowel gas. The left ovary is non-visualized uterus and overlying bowel gas. There is no fluid in the cul-de-sac. The pre void volume of the bladder was 376 ml. US/Transvaginal Non- IMPRESSION: Normal female pelvis. Electronically Signed: Leonel Berg MD at 12:56 EDT ,
--- NOTE | 2022-04-03 11:14 | US_ITS ---
STUDY: ULTRASOUND OF THE FEMALE PELVIS - COMPLETE REASON FOR EXAM: Female, 61 years old. Prolapse LMP: Patient is postmenopausal. TECHNIQUE: Transabdominal and Transvaginal TECHNICAL QUALITY: Adequate. COMPARISON: None. FINDINGS: The uterus is anteverted and is in a midline position. The uterus measures 6.7 cm x 4.4 cm x 2.7 cm. There is a Nabothian cyst of the cervix. The endometrium measures 2 mm in thickness, and is hyperechoic. There is no demonstrated endometrial mass. There is no demonstrated myometrial mass. I.U.D. - The patient does not have an I.U.D. The right ovary is non-visualized due to overlying bowel gas. The left ovary is non-visualized uterus and overlying bowel gas. There is no fluid in the cul-de-sac. The pre void volume of the bladder was 376 ml. US/Pelvic (Non ) IMPRESSION: Normal female pelvis. Electronically Signed: Leonel Berg MD at 12:56 EDT ,
--- NOTE | 2022-04-03 13:13 | BI_ITS ---
MAMMOGRAPHY - BILATERAL SCREENING REASON FOR EXAM: Female, 61 years old. Routine annual screening examination. PERTINENT HISTORY: Non-contributory. TECHNIQUE: Digital bilateral breast yen (3D mammographic acquisition) in the CC and MLO projections. 2-D mediolateral oblique (MLO) and craniocaudad (CC) views of both breasts were obtained. CAD: Full Field Digital Mammography with Computer Added Detection was performed. COMPARISON: No comparison mammograms available at this time. If any prior films become available, an addendum to this report can be generated. FINDINGS: Breast Composition: The breasts are almost entirely fatty. There are no dominant masses or suspicious calcifications. Small benign appearing bilateral axillary lymph nodes. No other significant abnormalities are identified. BI/SCRN MAMM (CAD)W/YEN BILAT IMPRESSION: Negative screening mammogram. Yearly followup mammogram recommended. (A) ASSESSMENT CATEGORY: BIRADS Category 2: Benign. A letter regarding these results will be sent to the patient by the facility within 30 days. Approximately 10% of breast cancers are not detected by mammography. A normal mammogram should not delay biopsy of a clinically suspicious abnormality. [id number] Electronically Signed: Leonel Berg MD at 14:08 EDT ,
== END | disposition home or self-care (01) ==
LOC: US 11:13
PROVIDERS: PCP Internal Medicine; Referring Provider Obstetrics & Gynecology; Visit Provider Obstetrics & Gynecology
DX: Z12.31 Encounter for screening mammogram for malignant neoplasm of breast (principal); N81.10 Cystocele, unspecified
CPT/HCPCS: 76830; 76856; 77063; 77067